=== PATIENT | male | born 1995 | race Two or more races ===

== ENCOUNTER 2016-02-29 08:33 | Outpatient (CLI) | payer BC ==
[2016-02-29 09:13] LABS: BASOPHILS # (AUTO) 0.1 /CMM (0.0-0.2); BASOPHILS % (AUTO) 0.7 % (0.0-2.0); DIFF TOTAL % 100 %; EOSINOPHILS # (AUTO) 0.2 /CMM (0.0-0.7); EOSINOPHILS % (AUTO) 2.1 % (0.0-6.0); HEMATOCRIT 52 % (39-51); HEMOGLOBIN 17.6 g/dL (13.5-17.5); LYMPHOCYTES # (AUTO) 2.9 /CMM (0.8-4.8); LYMPHOCYTES % (AUTO) 33.7 % (20.0-44.0); MEAN CORPUSCULAR HEMOGLOBIN 28 PG (26.0-33.0); MEAN CORPUSCULAR HGB CONC 34 g/dl (31.0-36.0); MEAN CORPUSCULAR VOLUME 84 fL (80-96); MONOCYTES # (AUTO) 0.6 /CMM (0.1-1.30); MONOCYTES % (AUTO) 6.7 % (2.0-12.0); NEUTROPHILS # (AUTO) 4.9 /CMM (1.8-8.9); NEUTROPHILS % (AUTO) 56.8 % (43.0-81.0); PLATELET COUNT (AUTO) 350 /CMM (150-450); RED BLOOD CELL COUNT(AUTO) 6.23 MIL/uL (4.5-6.0); WHITE BLOOD COUNT (AUTO) 8.6 K/uL (4.3-11.0)
[2016-02-29 09:32] LABS: ALBUMIN 3.5 g/dL (3.4-5.0); BILIRUBIN,TOTAL 0.5 mg/dL (0.2-1.0); CALCIUM, SERUM 8.7 mg/dL (8.5-10.1); CREATININE 0.8 mg/dL (0.6-1.3); POTASSIUM 4.1 mmol/L (3.5-5.1); TOTAL PROTEIN, SERUM 6.8 g/dL (6.4-8.2)
[2016-02-29 09:38] LABS: THYROID STIMULATING HORMONE 1.348 uIU/mL (0.358-3.74)
== END 2016-02-29 23:59 | disposition home or self-care (01) ==
LOC: LAB 08:33
PROVIDERS: ATTEND Family Medicine
DX: E10.9 Type 1 diabetes mellitus without complications (principal)
CPT/HCPCS: 36415; 80053-TC; 80061-TC; 84436-TC; 84443-TC; 85025-TC

== ENCOUNTER 2016-03-18 08:44 | Outpatient (CLI) | payer BC ==
[2016-03-19 18:10] LABS: *ANAANTI-SCLERODERMA-70 AB <0.2 AI (0.0-0.9)
== END 2016-03-18 23:59 | disposition home or self-care (01) ==
LOC: LAB 08:44
PROVIDERS: ATTEND Family Medicine
DX: R80.9 Proteinuria, unspecified (principal); L80 Vitiligo
CPT/HCPCS: 36415; 86160; 86225; 86235

== ENCOUNTER 2016-03-26 09:46 | Outpatient (CLI) | payer BC | END 2016-03-26 23:59 | disposition home or self-care (01) | LOC: US 09:46 | PROVIDERS: ATTEND Family Medicine | DX: R80.9 Proteinuria, unspecified (principal); L80 Vitiligo | CPT/HCPCS: 36415; 76770-TC; 85652-TC; 86431-TC ==